=== PATIENT | female | born 1975 | race Caucasian/White ===

== ENCOUNTER 2019-12-14 17:51 | Emergency (ER) | payer SELFPAY ==
[~2019-12-14] VITALS: Ht 152.4 cm; Wt 70.5 kg
[2019-12-14 20:39] VITALS: BP 134/72
== END 2019-12-14 20:41 | disposition home or self-care (01) ==
LOC: EMS 17:53
DX: J20.9 Acute bronchitis, unspecified (principal)
CPT/HCPCS: 93005